=== PATIENT | female | born 2005 | race Hispanic/Latino ===

== ENCOUNTER 2025-03-23 22:54 | Emergency (ER) | payer OTHER ==
[2025-03-24 04:26] LABS: #Basophils 0.03 10x3/uL (0.0-0.2); #Eosinophils 0.19 10x3/uL (0.0-0.7); #Monocytes 0.43 10x3/uL (0.11-0.59); #Neutrophils 7.18 10x3/uL (1.40-6.50); %Basophils 0.3 % (0.0-1.0); %Eosinophils 1.8 % (0.0-10.0); %Lymphocytes 25.7 % (28.0-48.0); %Monocytes 4.0 % (0.0-4.0); %Neutrophils 67.1 % (31.0-61.0); Hematocrit 32.5 % (36.0-47.0); Hemoglobin 10.6 g/dL (12.0-16.0); Mean Corpuscular Hemoglobin 27.8 pg (25.0-35.0); Mean Corpuscular Volume 85.3 fL (78.0-98.0); Platelet Count 326 10x3/uL (130-400); Red Blood Cell (RBC) Count 3.81 mill/uL (4.00-5.20); White Blood Cell (WBC) Count 10.70 10x3/uL (4.8-10.8)
[2025-03-24 04:39] LABS: INR-International Normal Ratio 1.1; Prothrombin Time 14.2 sec (12.0-14.7)
[2025-03-24 04:40] LABS: PTT 35.2 sec (22.9-36.1)
[2025-03-24 04:55] LABS: ALT (SGPT) 19 U/L (Less than 34); AST (SGOT) 31 U/L (11-34); Albumin 3.5 g/dL (3.1-4.5); Alkaline Phosphatase 93 U/L (40-100); Anion Gap 13 mmol/L (10-20); BUN (Urea Nitrogen) 16 mg/dL (7.0-18.7); Bilirubin, Total 0.6 mg/dL (0.3-1.2); CK (CPK) 253 U/L (29-168); Calc. Creatinine Clearance 0 mL/min (70-130); Calcium 8.8 mg/dL (7.8-10.44); Carbon Dioxide 23 mmol/L (22-29); Chloride 106 mmol/L (98-107); Globulin 3.7 g/dL (2.4-3.5); Glucose 112 mg/dL (70-105); Potassium 3.7 mmol/L (3.5-5.1); Sodium 138 mmol/L (136-145)
[2025-03-24] MEDS ORDERED: Acetaminophen 325 MG TAB ONE ×2 (06:17→06:24)
[2025-03-24] MEDS ORDERED: Dexamethasone 10 MG/ML VIAL ONE (06:20)
== END 2025-03-24 06:35 | disposition home or self-care (01) ==
LOC: ERS 22:54
DX: D69.0 Allergic purpura (principal)
CPT/HCPCS: 80053; 82550; 85025; 85610; 85730; 99283; J1100